=== PATIENT | male | born 1970 | race Caucasian/White ===

== ENCOUNTER 2016-10-19 09:36 | Outpatient (CLI) | payer BC | END 2016-10-19 23:00 | LOC: LAB SRH 09:36 | DX: E11.65 Type 2 diabetes mellitus with hyperglycemia (principal); E78.5 Hyperlipidemia, unspecified; E55.9 Vitamin D deficiency, unspecified | CPT/HCPCS: 90074; 90100; 90185; 91096; 91286; 91610; 92690 ==